=== PATIENT | female | born 1950 | race Caucasian/White ===

== ENCOUNTER 2023-10-17 10:55 | Observation (INO) | payer MEDICARE, SELFPAY ==
[2023-10-17] VITALS (43 sets, daily range): BP systolic 86–116; BP diastolic 47–75; PULSE 78–151; RESP 16–23; TEMP 36.4–37.2; O2SAT 92–100; BMI 25.9
--- NOTE | ~2023-10-17 | CT_ITS ---
EXAMINATION: CT brain wo con DATE: 10/19/2023 10:55 INDICATION: Severe headache TECHNIQUE: Computed tomography (CT) of the head was performed without intravenous contrast. The mA wa s adjusted according to patient size. Iterative reconstruction technique was employed. Exam dose: 60 5.33 mGy-cm total exam DLP. COMPARISON: None FINDINGS: No intracranial mass lesion or hemorrhage or cerebrovascular accident, midline shift or mas s effect is detected. There is bilateral carotid siphon internal carotid artery calcification. There is nonspecific diminis hed attenuation of the cerebral white matter, likely due to chronic small vessel ischemic changes. No subdural or epidural hematoma is detected. The mastoid air cells and included paranasal sinuses are normally developed and aerated other than mi ld patchy ethmoid air cell soft tissue thickening, primarily on the left. No fracture or bone destruction of the cranial vault. IMPRESSION: Cerebral atherosclerosis and chronic small vessel ischemic changes of the cerebral white matter No acute intracranial finding Reviewed, dictated and finalized at [facility]. Reviewed, dictated and finalized at location [facility]. SHING MACHINE OPERATOR HELPER
--- NOTE | ~2023-10-17 | CT_ITS ---
EXAMINATION: CTA chest PE protocol DATE: 10/17/2023 14:13 INDICATION: Shortness of breath. Palpitations. Arrhythmia. TECHNIQUE: Computed tomography angiography (CTA) of the chest was performed with 100 mL Omnipaque-350 intravenous contrast timed to evaluate the pulmonary arteries. Coronal maximum intensity projection 3D-reconstructions were created by the technologist. Automated exposure control and iterative reconst ruction technique were employed. Exam dose: 179.03 mGy-cm total exam DLP. COMPARISON: 10/17/2023 portable AP chest FINDINGS: There is diagnostic contrast enhancement of the pulmonary arteries and no evidence of pulmo nary embolism. Small pericardial effusion. There is cardiomegaly. No thoracic aortic aneurysm. Normal morphology of the adrenal glands. Status post cholecystectomy. Small sliding hiatal hernia. Scattered mild discoid densities are noted in all lobes of both lungs suggesting mild discoid atelect asis and/or scarring. Minimal scattered patchy bilateral groundglass pulmonary density which may repr esent small airways disease and/or minimal pneumonitis. Status post lower anterior cervical spine surgical fusion Mild likely chronic anterior wedge compression fracture deformity of T8 Minimal loss of height and anterior wedging of T9, also chronic. IMPRESSION: Small pericardial effusion Cardiomegaly No evidence of pulmonary embolism Mild patchy bilateral groundglass pulmonary densities scattered throughout the lungs which may repres ent small airways disease or mild pneumonitis Scattered bilateral discoid atelectasis and/or scarring throughout the lungs Reviewed, dictated and finalized at [facility]. Reviewed, dictated and finalized at [facility]. CHUTE/COMBATANT DIVER OFFICER IMPRESSION: Small pericardial effusion Cardiomegaly No evidence of pulmonary embolism Mild patchy bilateral groundglass pulmonary densities scattered throughout the lungs which may represent small airways disease or mild pneumonitis Scattered bilateral discoid atelectasis and/or scarring throughout the lungs
--- NOTE | ~2023-10-17 | XR_ITS ---
XR chest 1V portable DATE: 10/17/2023 11:51 INDICATION: Chest pain. Dizziness for 4 days. Atrial fibrillation. Weakness. TECHNIQUE: Portable upright AP chest on 10/17/2013 at 1148 hours COMPARISON: None FINDINGS: Cardiomegaly. Mild aortic unfolding. No hilar or mediastinal enlargement. There is mild discoid atelectasis or scarring in the right lower lung. No pulmonary infiltrate or con solidation, pleural effusion or pulmonary vascular congestion or pneumothorax is detected. Status post lower anterior cervical spine surgical fusion. Osteopenia. Status post cholecystectomy. Probable postoperative change of the left upper abdomen. IMPRESSION: Mild discoid atelectasis or scarring, right lower lung Reviewed, dictated and finalized at location [facility]. R SHEAR OPERATOR
--- NOTE | 2023-10-17 10:57 | ECG_ITS ---
Measurements Intervals [place] Rate: 145 P: [place]: 0 QRS: 16 QRSD: 84 T: -10 QT: 296 QTc: 461 Interpretive Statements ATRIAL FIBRILLATION WITH RAPID VENTRICULAR RESPONSE CONSIDER ANTERIOR INFARCT, AGE INDETERMINATE BORDERLINE ST-T WAVE ABNORMALITY- INFERIOR LEADS BASELINE ARTIFACT- I, II, III ABNORMAL ECG NO PREVIOUS ECG AVAILABLE FOR COMPARISON Electronically Signed On 10-17-2023 11:12:03 LEAD MOBILE DEVELOPER by Marino Johnson D.O.
--- NOTE | 2023-10-17 11:09 | ED.ARRPALP ---
HPI - Arrhythmia/Palpitations General Chief Complaint: Arrhythmia/Palpitations Stated Complaint: afib, Time Seen by Provider: 10/17/23 11:05 History of Present Illness HPI narrative: Patient is a 73-year-old female with history of atrial fibrillation who presents ER with weakness and palpitations. Patient felt like she went AFib last night. Prior to that she has been feeling short of breath and weak over last few days. No fevers or chills. Occasional cough. No known sick contacts. Patient did travel here recently from [place]. Patient diagnosed with AFib in the past but is not anticoagulated, she does take an aspirin. She is without chest pain or chest heaviness. Patient has had poor appetite and decreased oral intake. Patient has also had recent diagnosis hypothyroidism and started on levothyroxine. She has not been taking the medication last few days. Related Data Home Medications Medication Instructions Recorded Confirmed aspirin 81 mg tablet,delayed 81 mg PO DAILY 10/17/23 10/17/23 release baclofen 5 mg tablet 5 mg PO TID PRN Muscle Spasm 10/17/23 10/17/23 hydrochlorothiazide 25 mg tablet 25 mg PO DAILY 10/17/23 10/17/23 levothyroxine 50 mcg tablet 25 mcg PO DAILY 10/17/23 10/17/23 lorazepam 0.5 mg tablet 0.5 mg PO HS PRN Anxiety 10/17/23 10/17/23 metformin 500 mg tablet,extended 500 mg PO DAILY 10/17/23 10/17/23 release 24 hr omeprazole 20 mg capsule,delayed 20 mg PO DAILY 10/17/23 10/17/23 release tramadol 50 mg tablet 50 mg PO Q12H PRN Pain 10/17/23 10/17/23 Allergies Allergy/AdvReac Type Severity Reaction Status Date / Time tetanus toxoid, adsorbed Allergy Anaphylaxis Verified 10/17/23 11:05 Sulfa (Sulfonamide AdvReac Nausea and Verified 10/17/23 11:05 Antibiotics) Vomiting Review of Systems Review of Systems: All systems reviewed & are unremarkable except as noted in HPI and below Constitutional: Constitutional: Denies chills, Reports fatigue and Denies fever(s) ENT: Reports system reviewed and no additional complaints, except as documented Cardiovascular: Cardiovascular: Denies chest pain, Reports rapid heart rate and Denies radiating jaw, neck or arm pain Respiratory: Respiratory: Denies cough, Reports dyspnea and Denies wheezing Gastrointestinal: Gastrointestinal: Reports no additional gastrointestinal complaints Genitourinary: Genitourinary: Reports no additional female genitourinary complaints [facility] Past Medical History Medical History (Updated 10/17/23 @ 18:32 by Andrew Hernandez MD) Atrial fibrillation Diabetes Hypertension Hypothyroidism Surgical History Surgical History (Updated 10/17/23 @ 11:32 by Andrew Hernandez MD) History of cholecystectomy History of hysterectomy Hx of appendectomy Social History Social History Smoking status: Never smoker Second hand tobacco smoke exposure: Yes Alcohol intake: never Substance use: never Do You Feel Safe in your Home?: Yes Lack of Transportation: No Lack of Food: Never True Current Housing: I Have Housing Concerned About Future Housing: No Difficulty Paying Gas/Electric Bills: No Difficulty Paying for Meds: No Currently Unemployed: No Education: Don't Know Difficulty w/ Childcare or Family Care: No Spiritual care concerns: No Exam Narrative: GENERAL: Fatigued-appearing, well-nourished, and in no acute distress. HEAD: Normocephalic, atraumatic. ENT: Mucous membranes moist. NECK: Supple. CHEST: Clear to auscultation. No respiratory distress. HEART: irregularly irregular rate and rhythm that is tachycardic. Normal peripheral pulses. ABDOMEN: Soft, nontender, nondistended. EXTREMITIES: Normal range of motion. No edema. SKIN: Warm, dry, no rash. NEURO: Alert and oriented x3. PSYCH: Normal mood and affect. Course Course Emergency Course: Patient resting comfortably. Rate controlled with IV diltiazem. Mild drop in blood pressure but responsive to IV fluid. Adm
[2023-10-17] MEDS: ASPIRIN 81 MG CHEWABLE TABLET 324 MG PO (11:15)
[2023-10-17 11:17] LABS: Basophils Percent Auto 0.2 % (0.2-1.2); Eosinophils Absolute Auto 0.1 K/mm3 (0-0.3); Eosinophils Percent Auto 1.2 % (0-4.4); Hematocrit 40.3 % (37.0-47.0); Hemoglobin 13.2 g/dL (12.0-15.0); Immature Granulocyte Absolute 0.05 K/mm3 (0.00-0.031); Immature Granulocyte Percent A 0.4 % (0-0.5); Lymphocytes Absolute Auto 0.86 K/mm3 (0.9-3.2); Lymphocytes Percent Auto 7.3 % (18.3-44.2); Mean Corpuscular HGB Conc 32.8 g/dl (32-36); Mean Corpuscular Hemoglobin 29.5 pg (26-34); Mean Corpuscular Volume 90.2 fl (80-100); Mean Platelet Volume 9.7 fl (7.4-10.4); Monocytes Percent Auto 8.5 % (2.6-8.5); Neutrophils Absolute Auto 9.7 K/mm3 (1.3-6.7); Neutrophils Percent Auto 82.4 % (45.5-73.1); Platelet Count Result 257 k/mm3 (150-375); Red Blood Count 4.47 M/mm3 (4.2-5.4); Red Cell Distribution Width 12.3 % (11.5-14.5); White Blood Count 11.7 K/mm3 (4.5-10.0)
[2023-10-17] MEDS: Please add drug allergy info to patient profile. 1 EACH XX (11:17)
[2023-10-17 11:28] LABS: INR 1.1; Prothrombin Time 14.2 Seconds (11.1-14.7)
[2023-10-17 11:29] LABS: Partial Thromboplastin Time 28.7 SECONDS (22.3-36.8)
[2023-10-17 11:30] LABS: Alanine Aminotransferase 21 U/L (6-35); Albumin Level 3.7 g/dL (3.5-5.1); Alkaline Phosphatase 82 U/L (38-126); Anion Gap 16 mmol/L (8-16); Aspartate Amino Transferase 25 U/L (14-36); Bilirubin,Total 1.1 mg/dL (0.2-1.3); Blood Urea Nitrogen 18 mg/dL (7-17); Calcium 8.4 mg/dL (8.4-10.2); Carbon Dioxide 24 mmol/L (22-30); Chloride 90 mmol/L (98-107); Estimated CRCL calculation 46 ml/min; Estimated Glomerular Filt Rate > 60; Glucose 123 mg/dL (65-110); Lipase 180 U/L (23-300); Sodium 130 mmol/L (137-145)
[2023-10-17] MEDS: dilTIAZem HCl INJ 25 MG/5 ML VIAL 10 MG IV PUSH (11:38)
[2023-10-17] MEDS: POTASSIUM CHLORIDE 20 MEQ ER TABLET 40 MEQ PO (11:38)
[2023-10-17] MEDS: SODIUM CHLORIDE 0.9% IV 1,000 ML 999 ML IV CONT ×2 (11:45→13:40)
[2023-10-17 11:47] LABS: Troponin I 0.059 ng/mL (0.000-0.034)
[2023-10-17 12:30] LABS: NT Pro B Type Natriuretic Pept 9260 pg/mL (19.9-100)
[2023-10-17 12:34] LABS: Influenza A QL RT-PCR Negative (Negative); Influenza B QL RT-PCR Negative (Negative); RSV RNA, RT-PCR Negative (Negative); SARS-CoV-2 RNA PCR Negative (Negative)
--- NOTE | 2023-10-17 13:24 | PC.NURSE ---
EDP DR. Hernandez gave VORB for 1L of 0.9% NS bolus stat.
--- NOTE | 2023-10-17 13:57 | ECG_ITS ---
Measurements Intervals [place] Rate: 78 P: 40 [place]: 134 QRS: 42 QRSD: 83 T: 6 QT: 372 QTc: 425 Interpretive Statements SINUS RHYTHM CONSIDER ANTERIOR INFARCT, AGE INDETERMINATE BORDERLINE ST-T WAVE ABNORMALITY- INFERIOR LEADS ABNORMAL ECG COMPARED TO ECG 10/17/2023 11:05:22 SINUS RHYTHM NOW PRESENT Electronically Signed On 10-17-2023 14:06:36 FACS TEACHER by Marino Johnson D.O.
[2023-10-17 14:36] LABS: Troponin I 0.052 ng/mL (0.000-0.034)
[2023-10-17] MEDS: ENOXAPARIN 80 MG/0.8 ML SYRINGE 65 MG SUB-Q (14:51)
[2023-10-17 14:54] LABS: Free T4 Free Thyroxine Reflex 1.65 ng/dL (0.78-2.19)
[2023-10-17 15:33] LABS: Total Triiodothyronine (T3) 0.74 NG/ML (0.97-1.69)
--- NOTE | 2023-10-17 16:07 | PC.NURSE ---
EDP Dr. Hernandez reports no blood cultures needed
[2023-10-17] MEDS: POTASSIUM CHLORIDE INJ 40 MEQ in SODIUM CHLORIDE 0.9% IV 500 ML 130 MEQ IVPB (16:15)
--- NOTE | 2023-10-17 17:18 | ADMGEN ---
This patient, Sonam Don, was admitted to IMU Room 210-01. Patient/family oriented to hospital policies and general routines including ID bracelet, bed and alarms, visiting hours, pain management, procedures, bathroom and other care routines, personal items, smoking policy, room service/diet, and visiting hours. Information on how to activate the Rapid Response Team has been discussed. Patient/Family are encouraged to report perceived risks to care and to ask questions if they do not understand what they are told or what they should do.
[2023-10-17 18:41] LABS: Troponin I 0.049 ng/mL (0.000-0.034)
[2023-10-17] MEDS: AZITHROMYCIN 500 MG/NS 250 ML 500 MG/250 ML BAG 250 MG IVPB (18:57)
[2023-10-17] MEDS: HYDROcodone/acetaminophen (*CRX) 5-325 MG TABLET 1 TAB PO (20:35)
--- NOTE | 2023-10-17 23:14 | PM.IMHP ---
H&P: HPI History of Present Illness Date/Time: 10/17/23 23:14 Chief Complaint: Patient came to the ER for evaluation of palpitations and weakness Narrative: She is a very pleasant lady with atrial fibrillation, not anticoagulated, who came to the ER for evaluation because of weakness and palpitations. She felt like she went into AFib light night. She is feeling short of breath and weak over the last few days. She did travel here recently from [place]. She has recently been diagnosed with hypothyroidism and started on levothyroxine which she has not been taking for last few days. Workup was done which showed AFib with RVR. Patient given IV diltiazem with good rate control, but her SBP fell below 100. Workup also showed mild leukocytosis with pneumonia which was confirmed with CT of chest. She is given IV hydration and started on IV antibiotics. She has minimally elevated cardiac enzymes which are flat. She does not complain of any chest pain. She has been placed under observation for medical management, tele monitoring and cardiology evaluation in am. Review of Systems Review of Systems: 14 systems were reviewed with pertinent positives and negatives per HPI. Except as documented in the HPI/progress notes, all other systems were reviewed and are negative. All systems reviewed & are unremarkable except as noted in HPI and below PMFSH Past Medical History Medical History (Updated 10/18/23 @ 03:13 by Asad Coleman MD) Atrial fibrillation Diabetes Hypertension Hypothyroidism Hypothyroidism (acquired) Surgical History Surgical History (Updated 10/17/23 @ 11:32 by Andrew Hernandez MD) History of cholecystectomy History of hysterectomy Hx of appendectomy Social History Social History Smoking status: Never smoker Second hand tobacco smoke exposure: Yes Alcohol intake: never Substance use: never Do You Feel Safe in your Home?: Yes Lack of Transportation: No Lack of Food: Never True Current Housing: I Have Housing Concerned About Future Housing: No Difficulty Paying Gas/Electric Bills: No Difficulty Paying for Meds: No Currently Unemployed: No Education: Don't Know Difficulty w/ Childcare or Family Care: No Spiritual care concerns: No Meds Home Medications and Allergies Home Medications Medication Instructions Recorded Confirmed Type aspirin 81 mg tablet,delayed 81 mg PO DAILY 10/17/23 10/17/23 History release baclofen 5 mg tablet 5 mg PO TID PRN Muscle Spasm 10/17/23 10/17/23 History hydrochlorothiazide 25 mg tablet 25 mg PO DAILY 10/17/23 10/17/23 History levothyroxine 50 mcg tablet 25 mcg PO DAILY 10/17/23 10/17/23 History lorazepam 0.5 mg tablet 0.5 mg PO HS PRN Anxiety 10/17/23 10/17/23 History metformin 500 mg tablet,extended 500 mg PO DAILY 10/17/23 10/17/23 History release 24 hr omeprazole 20 mg capsule,delayed 20 mg PO DAILY 10/17/23 10/17/23 History release tramadol 50 mg tablet 50 mg PO Q12H PRN Pain 10/17/23 10/17/23 History Allergies Allergy/AdvReac Type Severity Reaction Status Date / Time tetanus toxoid, adsorbed Allergy Anaphylaxis Verified 10/17/23 11:05 Sulfa (Sulfonamide AdvReac Nausea and Verified 10/17/23 11:05 Antibiotics) Vomiting Vital Signs Vital Signs - 24 hr 10/17/23 10:59 10/17/23 11:01 10/17/23 11:02 Temperature 36.4 C Pulse Rate 147 H 109 H 128 H Respiratory Rate 20 22 H 22 H Blood Pressure 103/67 103/67 Pulse Oximetry 98 97 Oxygen Delivery Room Air 10/17/23 11:16 10/17/23 11:34 10/17/23 11:35 Temperature Pulse Rate 151 H 102 H 111 H Respiratory Rate 23 H 21 H 22 H Blood Pressure 102/66 Pulse Oximetry 98 97 96 Oxygen Delivery 10/17/23 11:45 10/17/23 11:51 10/17/23 12:00 Temperature Pulse Rate 92 89 88 Respiratory Rate 20 23 H 22 H Blood Pressure 113/74 97/64 L 103/64 Pulse Oximetry 95 97 97 Oxygen Delivery 10/17/23 12:01 10/17/23 12:10 10/17/23 12:15 Temperature
[2023-10-18] VITALS (17 sets, daily range): BP systolic 110–132; BP diastolic 62–86; PULSE 77–134; RESP 16–24; TEMP 36.7–37.4; O2SAT 94–99
--- NOTE | 2023-10-18 | ECHO_ITS ---
Patient Info Name: Sonam Don Age: 73 years : 1950 Gender: Female Ht: 64 in Wt: 145 lbs BSA: 1.73 m2 HR: 78 bpm BP: 110 / 62 mmHg Heart Rhythm: Sinus Rhythm Technical Quality: Good Exam Date: 10/18/2023 1:06 PM Exam Location: Echo Lab Patient Status: Inpatient Admit Date: 10/17/2023 Staff Ordering Physician: Radha Wadsworth MD Forensic Investigator: Lior Brown RDCS Attending Provider: Uziel Lake MD Exam Type: CA echo doppler color flow Study Info Indications - CHF Complete two-dimensional, color flow and Doppler transthoracic echocardiogram is performed. Summary 1. Complete two-dimensional, color flow and Doppler transthoracic echocardiogram is performed. 2. Left ventricular chamber dimension is normal. 3. Left ventricular systolic function is normal, estimated at 65-70%. 4. There is mildly increased left ventricular wall thickness. 5. The left ventricular diastolic function is grade I diastolic dysfunction. 6. Right ventricular chamber dimension is mildly enlarged. 7. Right ventricular systolic function is normal. 8. Left atrial chamber dimension is mildly enlarged. 9. Right atrial chamber dimension is mildly enlarged. 10. There is trace aortic valve regurgitation. 11. There is trace mitral valve regurgitation. 12. There is trace tricuspid valve regurgitation. 13. There is trace circumferential pericardial effusion. Left Ventricle Left ventricular chamber dimension is normal. Left ventricular systolic function is normal, estimated at 65-70%. There is mildly increased left ventricular wall thickness. The left ventricular diastolic function is grade I diastolic dysfunction. Right Ventricle Right ventricular chamber dimension is mildly enlarged. Right ventricular systolic function is normal. Left Atria Left atrial chamber dimension is mildly enlarged. Right Atria Right atrial chamber dimension is mildly enlarged. Atrial Septum Intact interatrial septum visualized by color flow imaging. Aortic Valve The aortic valve is trileaflet. There is no aortic valve stenosis. There is trace aortic valve regurgitation. There is mild aortic valve calcification. Pulmonic Valve The pulmonic valve is not well visualized. Mitral Valve There is trace mitral valve regurgitation. The mitral valve annulus is mildly calcified. Tricuspid Valve There is trace tricuspid valve regurgitation. Pericardium/Pleural There is trace circumferential pericardial effusion. Inferior Vena Cava Normal inferior vena cava with >50% collapse upon inspiration consistent with normal right atrial pressure, 3 mmHg. Aorta The aortic root size at the sinus of Valsalva is normal. Left Ventricular Outflow Tract Name Value Normal LVOT 2D LVOT Diameter 1.8 cm LVOT Doppler LVOT Peak Gradient 4 mmHg LVOT Mean Gradient 2 mmHg LVOT VTI 20 cm LVOT VTI/AV VTI Ratio 0.8 LVOT Stroke Volume 53 ml LVOT CO 4.1 l/min LVOT CI 2.4 l/min/m2 Pulmonic Valve
[2023-10-18] MEDS: traMADol HCL (*CRX) 50 MG TABLET PO ×2 (04:08→16:09)
[2023-10-18] MEDS: KCL 20MEQ/0.9% SOD CHL 1,000 ML 100 ML IV CONT (04:09)
[2023-10-18 05:55] LABS: Troponin I 0.027 ng/mL (0.000-0.034)
[2023-10-18] MEDS: LEVOTHYROXINE SODIUM 25 MCG TABLET PO (06:40)
[2023-10-18] MEDS: ACETAMINOPHEN 325 MG TABLET 650 MG PO (08:32)
[2023-10-18] MEDS: ENOXAPARIN 40 MG/0.4 ML SYRINGE SUB-Q (08:34)
[2023-10-18] MEDS: PANTOPRAZOLE 40 MG TABLET PO (08:35)
[2023-10-18] MEDS: ASPIRIN 81 MG ENTERIC TABLET PO (08:35)
[2023-10-18] MEDS: hydroCHLOROthiazide 25 MG TABLET PO (08:35)
[2023-10-18 09:28] LABS: Basophils Percent Auto 0.2 % (0.2-1.2); Eosinophils Absolute Auto 0.3 K/mm3 (0-0.3); Eosinophils Percent Auto 3.4 % (0-4.4); Hematocrit 33.1 % (37.0-47.0); Hemoglobin 10.8 g/dL (12.0-15.0); Immature Granulocyte Absolute 0.04 K/mm3 (0.00-0.031); Immature Granulocyte Percent A 0.5 % (0-0.5); Lymphocytes Absolute Auto 0.58 K/mm3 (0.9-3.2); Mean Corpuscular HGB Conc 32.6 g/dl (32-36); Mean Corpuscular Hemoglobin 29.6 pg (26-34); Mean Corpuscular Volume 90.7 fl (80-100); Mean Platelet Volume 10.8 fl (7.4-10.4); Monocytes Absolute Auto 0.7 K/mm3 (0.1-0.6); Monocytes Percent Auto 8.6 % (2.6-8.5); Neutrophils Absolute Auto 6.6 K/mm3 (1.3-6.7); Neutrophils Percent Auto 80.3 % (45.5-73.1); Platelet Count Result 210 k/mm3 (150-375); Red Blood Count 3.65 M/mm3 (4.2-5.4); Red Cell Distribution Width 12.6 % (11.5-14.5); White Blood Count 8.3 K/mm3 (4.5-10.0)
--- NOTE | 2023-10-18 09:28 | PM.IMPN ---
Progress Note: A&P Assessment and Plan (1) Hypotension: Code(s): I95.9 - Hypotension, unspecified Status: Acute (2) Hypokalemia: Code(s): E87.6 - Hypokalemia Status: Acute (3) Hypothyroidism (acquired): Code(s): E03.9 - Hypothyroidism, unspecified Status: Acute (4) Atrial fibrillation with rapid ventricular response: Code(s): I48.91 - Unspecified atrial fibrillation Status: Acute (5) Pneumonia: Code(s): J18.9 - Pneumonia, unspecified organism Status: Acute (6) Dyspnea on exertion: Code(s): R06.09 - Other forms of dyspnea Status: Acute Plan 73F w/ PMH p a fib not anticoagulated, HTN, hypothyroidism, NIDDM presents with complains of palpitations and weakness and SOB. Admitted on 10/18/22 with a fib w/ RVR # a fib with RVR - prior history of a fib but hasn't had it completely worked up. documented a fib in RVR and now controlled after 10mg iv cardizem bolus however her SBP dropped below 100. she was not placed on anything oral for terminologist. cardiology consulted. she did receive lovenox today. CHADvasc2 score is 4. - pending echocardiogram - troponin elevation now resolved, likely 2/2 to demand. no acute ischemia on EKG although will defer to cardiology next steps considering a fib and pending echo. # dyspnea on exertion - she complains of this progressing over recent past and now worse after receiving IVF. - d/c IVF. BNP on admission 9000+, crackles on lung exam. CHF vs a fib causing flash pulmonary edema. start lasix small dose at 20mg iv qday. daily weights and fluid restriction 1800cc/day # hypokalemia - resolved s/p replacement. # leukocytosis - resolved, was likely reactive # pna? - started treatment on CAP on admission. pt has cough and night sweats. no sputum production. will continue for full 5 day treatment. # HTN - now controlled - pending a fib medication mgmt. # hypothyroidism - continue home dosing # NIDDM - accuchecks # diarrhea - hx of c diff, pt complains of diarrhea. check PCR # vulvovaginitis - pt complains of recurrent yeast infection when taking abx. she declines exam and want to start Diflucan prophylactically. diflucan 150mg po x1. # pt reports history of 30% coronary artery occlusion and aneurysm, takes aspirin at home. will add statin. FEN: saline lock IV, cardiac diabetic diet GI prophylaxis: not indicated DVT prophylaxis: lovenox Lines: pIV Code Status: Full code Dispo: stabe More than 35 minutes spent on chart review, patient interaction and assessment and plan. Subjective Date/time seen: 10/18/23 09:28 Interval history: NAOE. 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 pt has dyspnea on exertion which has been progressive in the recent past but she feel it is worse after fluid administration. she reports diarrhea as well. no chest pain Review of Systems Review of Systems: All systems reviewed & are unremarkable except as noted in HPI and below (subjective) Exam Const: General: comfortable and no acute distress Eyes: Pupils: Equal, round and reactive pupils present Neck: Neck: supple Resp: Effort & Inspection: normal respiratory effort Auscultation: crackles Cardio: Rate: regular rate Rhythm: regular rhythm Heart sounds: no gallops, no murmurs and no rubs GI: GI Palp: Yes Soft to palpation and No Tenderness to palpation present (GI) Extrem: General: no edema Objective Data Vital Signs Vital Signs: Vital Signs - 24 hr 10/17/23 10:59 10/17/23 11:01 10/17/23 11:02 Temperature 97.6 F Pulse Rate 147 H 109 H 128 H Respiratory Rate 20 22 H 22 H Blood Pressure 103/67 103/67 Pulse Oximetry 98 97 Oxygen Delivery Room Air 10/17/23 11:16 10/17/23 11:34 10/17/23 11:35 Temperature Pulse Rate 151 H 102 H 111 H Respiratory Rate 23 H 21 H 22 H Blood Pressure 102/66 Pulse Oximetry 98 97 96 Oxygen Delivery 10/17/23 11:45 10/17/23 11:51 10/17/23 12:00 Tem
[2023-10-18 09:44] LABS: Anion Gap 9 mmol/L (8-16); Blood Urea Nitrogen 13 mg/dL (7-17); Calcium 7.5 mg/dL (8.4-10.2); Carbon Dioxide 22 mmol/L (22-30); Chloride 103 mmol/L (98-107); Estimated CRCL calculation 60 ml/min; Estimated Glomerular Filt Rate > 60; Glucose 111 mg/dL (65-110); Magnesium 2.3 mg/dL (1.6-2.3); Potassium 3.9 mmol/L (3.4-5.0); Sodium 134 mmol/L (137-145)
[2023-10-18] MEDS: FLUCONAZOLE 150 MG TABLET PO (10:22)
[2023-10-18] MEDS: FUROSEMIDE INJ 40 MG/4 ML VIAL IV PUSH (10:23)
[2023-10-18 11:59] LABS: Glucose Point of Care 117 mg/dl (65-105)
--- NOTE | 2023-10-18 13:33 | PM.CNCAR ---
Assessment and Plan Assessment and plan (1) Atrial fibrillation with rapid ventricular response: Code(s): I48.91 - Unspecified atrial fibrillation Status: Acute Assessment and Plan: History of paroxysmal atrial fibrillation on no medical therapy. She states that she has symptoms of AFib recurrence about 2 to 3 times a week on average. She is not currently anticoagulated. She does have a CHADS2 Vasc score of at least 4 (age, gender, DM, CAD), therefore anticoagulation is indicated. Will start her on apixaban 5 mg p.o. b.i.d.. Will await results of echocardiogram before deciding which agent to use for rhythm/rate control. (2) CAD (coronary artery disease): Code(s): I25.10 - Atherosclerotic heart disease of [place] coronary artery without angina pectoris Status: Acute Assessment and Plan: Has a history mild, nonobstructive coronary artery disease with a reported 36% lesion in the LAD that is being treated medically. (3) Dyspnea on exertion: Code(s): R06.09 - Other forms of dyspnea Status: Acute Assessment and Plan: She does have a history concerning for CHF. She describes progressive dyspnea, dyspnea on exertion, lower extremity edema. Echo is pending. Will stop the IV Lasix for now because she looks euvolemic on exam at this point. History of Present Illness History of Present Illness Consult date/time: 10/18/23 13:33 Requesting physician: Radha Wadsworth MD Consult reason: atrial fibrillation Reason For Visit: afib rvr,elevated troponin,pneumonia Narrative: Sonam Don is a pleasant 73-year-old female with a history of hypothyroidism, nonobstructive coronary artery disease, type 2 diabetes mellitus, and atrial fibrillation. This is a patient who came to the hospital because of 5 days of not feeling well and in onset of dizziness and a sensation of racing heartbeat. She has a history of paroxysmal atrial fibrillation but states that she has never been on medical treatment for this including anticoagulation. A couple of years ago she had and extensive cardiac workup at a hospital near her home in [facility] or she reports having left heart catheterization that showed mild, nonobstructive coronary artery disease in her LAD that is being treated medically. She also had an echocardiogram which she does not recall to have any abnormal findings. She did have atrial fibrillation with rapid ventricular response noted on EKG in the emergency department. She has since converted to sinus rhythm and is asymptomatic. Review of Systems Review of Systems: All systems reviewed & are unremarkable except as noted in HPI and below PMFSH Past Medical History Medical History Atrial fibrillation Diabetes Hypertension Hypothyroidism Hypothyroidism (acquired) Surgical History Surgical History History of cholecystectomy History of hysterectomy Hx of appendectomy Social History Social History Smoking status: Never smoker Second hand tobacco smoke exposure: Yes Alcohol intake: never Substance use: never Do You Feel Safe in your Home?: Yes Lack of Transportation: No Lack of Food: Never True Current Housing: I Have Housing Concerned About Future Housing: No Difficulty Paying Gas/Electric Bills: No Difficulty Paying for Meds: No Currently Unemployed: No Education: Don't Know Difficulty w/ Childcare or Family Care: No Spiritual care concerns: No Meds Home Medications and Allergies Home Medications Medication Instructions Recorded Confirmed Type aspirin 81 mg tablet,delayed 81 mg PO DAILY 10/17/23 10/17/23 History release baclofen 5 mg tablet 5 mg PO TID PRN Muscle Spasm 10/17/23 10/17/23 History hydrochlorothiazide 25 mg tablet 25 mg PO DAILY 10/17/23 10/17/23 History levothyroxine 50
[2023-10-18 16:32] LABS: Glucose Point of Care 103 mg/dl (65-105)
[2023-10-18] MEDS: MORPHINE SULFATE (*CRX) 2 MG/ML INJ IV PUSH ×2 (17:47→20:23)
[2023-10-18] MEDS: BACLOFEN 5 MG TABLET PO (17:48)
[2023-10-18] MEDS: AZITHROMYCIN 500 MG/NS 250 ML 500 MG/250 ML BAG 250 MG IVPB (17:52)
--- NOTE | 2023-10-18 20:22 | ECG_ITS ---
Measurements Intervals [place] Rate: 123 P: ID: 0 QRS: 18 QRSD: 93 T: -16 QT: 331 QTc: 474 Interpretive Statements ATRIAL FIBRILLATION WITH RAPID VENTRICULAR RESPONSE BORDERLINE R WAVE PROGRESSION, ANTERIOR LEADS CONSIDER INFERIOR INFARCT, AGE INDETERMINATE BASELINE ARTIFACT- I, II, AVR, AVL, AVF ABNORMAL ECG COMPARED TO ECG 10/17/2023 14:05:40 ATRIAL FIBRILLATION NOW PRESENT Electronically Signed On 10-19-2023 6:37:30 [employer]IVER by Marino Johnson D.O.
[2023-10-18] MEDS: APIXABAN 5 MG TABLET PO (20:23)
[2023-10-18] MEDS: LORazepam (*CRX) 0.5 MG TABLET PO (20:23)
[2023-10-18] MEDS: dilTIAZem HCl INJ 25 MG/5 ML VIAL 10 MG IV PUSH (21:17)
[2023-10-18 21:46] LABS: Glucose Point of Care 137 mg/dl (65-105)
[2023-10-18] MEDS: dilTIAZem 100 MG/100 ML 100 MG/100 ML BAG IV CONT (22:27)
[2023-10-19] VITALS (13 sets, daily range): BP systolic 106–115; BP diastolic 51–60; PULSE 65–101; RESP 15–24; TEMP 36.5–37.4; O2SAT 93–98
[2023-10-19] MEDS: MORPHINE SULFATE (*CRX) 2 MG/ML INJ IV PUSH ×2 (00:17→10:00)
[2023-10-19 04:30] LABS: Basophils Percent Auto 0.4 % (0.2-1.2); Eosinophils Absolute Auto 0.2 K/mm3 (0-0.3); Eosinophils Percent Auto 2.6 % (0-4.4); Hematocrit 37.6 % (37.0-47.0); Hemoglobin 12.5 g/dL (12.0-15.0); Immature Granulocyte Absolute 0.04 K/mm3 (0.00-0.031); Immature Granulocyte Percent A 0.5 % (0-0.5); Lymphocytes Absolute Auto 0.94 K/mm3 (0.9-3.2); Lymphocytes Percent Auto 11.1 % (18.3-44.2); Mean Corpuscular HGB Conc 33.2 g/dl (32-36); Mean Corpuscular Hemoglobin 29.6 pg (26-34); Mean Corpuscular Volume 88.9 fl (80-100); Mean Platelet Volume 9.8 fl (7.4-10.4); Monocytes Absolute Auto 0.5 K/mm3 (0.1-0.6); Monocytes Percent Auto 6.4 % (2.6-8.5); Neutrophils Absolute Auto 6.7 K/mm3 (1.3-6.7); Platelet Count Result 286 k/mm3 (150-375); Red Blood Count 4.23 M/mm3 (4.2-5.4); Red Cell Distribution Width 12.3 % (11.5-14.5); White Blood Count 8.5 K/mm3 (4.5-10.0)
[2023-10-19 04:44] LABS: Alanine Aminotransferase 18 U/L (6-35); Albumin Level 3.1 g/dL (3.5-5.1); Alkaline Phosphatase 80 U/L (38-126); Anion Gap 10 mmol/L (8-16); Aspartate Amino Transferase 35 U/L (14-36); Bilirubin,Total 0.8 mg/dL (0.2-1.3); Blood Urea Nitrogen 6 mg/dL (7-17); Calcium 8.1 mg/dL (8.4-10.2); Carbon Dioxide 29 mmol/L (22-30); Chloride 94 mmol/L (98-107); Estimated CRCL calculation 60 ml/min; Estimated Glomerular Filt Rate > 60; Glucose 122 mg/dL (65-110); Magnesium 2.1 mg/dL (1.6-2.3); Potassium 2.9 mmol/L (3.4-5.0); Sodium 133 mmol/L (137-145)
[2023-10-19 04:59] LABS: Procalcitonin 0.2 ng/mL
--- NOTE | 2023-10-19 05:00 | ECG_ITS ---
Measurements Intervals [place] Rate: 79 P: 49 CA: 137 QRS: 46 QRSD: 92 T: 30 QT: 382 QTc: 438 Interpretive Statements SINUS RHYTHM BORDERLINE R WAVE PROGRESSION, ANTERIOR LEADS NONSPECIFIC T-WAVE ABNORMALITY- ANT/INF LEADS BORDERLINE ECG COMPARED TO ECG 10/18/2023 20:36:50 SINUS RHYTHM NOW PRESENT T-WAVE ABNORMALITY NOW PRESENT Electronically Signed On 10-19-2023 9:53:20 [employer] DEVELOPER by Marino Johnson D.O.
[2023-10-19] MEDS: traMADol HCL (*CRX) 50 MG TABLET PO (05:27)
[2023-10-19] MEDS: LEVOTHYROXINE SODIUM 25 MCG TABLET PO (05:28)
[2023-10-19] MEDS: BACLOFEN 5 MG TABLET PO (05:28)
[2023-10-19 07:38] LABS: Glucose Point of Care 132 mg/dl (65-105)
--- NOTE | 2023-10-19 09:31 | PM.PNCARD ---
Progress Note: A&P Assessment and Plan (1) Atrial fibrillation with rapid ventricular response: Code(s): I48.91 - Unspecified atrial fibrillation Status: Acute Assessment and Plan: History of paroxysmal atrial fibrillation on no medical therapy. She states that she has symptoms of AFib recurrence about 2 to 3 times a week on average. She had a recurrence of atrial fibrillation with RVR last night and spontaneously converted to sinus rhythm on diltiazem. IV diltiazem and start p.o. diltiazem 30 mg q.6 hours today. Continue apixaban 5 mg p.o. b.i.d.. Echocardiogram showed normal LVEF, grade I diastolic dysfunction, trace circumferential pericardial effusion K+ low this morning at 2.9 and is being replaced Continue telemetry for now From a cardiac standpoint could discharge later this afternoon if cardiac rhythm and BP remain stable on p.o. Diltiazem. If so, she should be discharged on Diltiazem CD 120mg daily (2) CAD (coronary artery disease): Code(s): I25.10 - Atherosclerotic heart disease of [place] coronary artery without angina pectoris Status: Acute Assessment and Plan: Has a history mild, nonobstructive coronary artery disease with a reported 36% lesion in the LAD that is being treated medically. (3) Dyspnea on exertion: Code(s): R06.09 - Other forms of dyspnea Status: Acute Assessment and Plan: Echo showed normal LV systolic function, EF 60-65%. No significant valvular abnormalities. Furosemide has been stopped at this point as she looks euvolemic. Subjective Date/time seen: 10/19/23 09:31 Interval history: Cardiology follow up for atrial fibrillation She had recurrence of atrial fibrillation last night. She felt short of breath and had palpitations. She was placed on a diltiazem drip and has converted back to sinus rhythm at this point her complaint this morning is that she has a headache. Review of Systems Review of Systems: All systems reviewed & are unremarkable except as noted in HPI and below Exam Const: General: comfortable, no acute distress, alert and awake Orientation/consciousness: patient oriented x3 HENMT: Head: normal to inspection Eyes: General: appearance normal, both eyes and all related structures Pupils: Equal, round and reactive pupils present Neck: Neck: normal visual inspection, supple and no JVD Carotids: normal carotid upstroke Resp: Effort & Inspection: normal respiratory effort Auscultation: clear to auscultation bilaterally Cardio: Rate: regular rate Rhythm: regular rhythm Heart sounds: S1 normal heart sound present, S2 normal heart sound present and no murmurs GI: Auscultation: normal bowel sounds Skin: General skin exam: normal color Neuro: General: patient oriented x3 Cranial nerves: Yes Equal, round and reactive pupils present Extrem: General: normal to inspection Psych: Appearance: grossly normal Mental Status: mental status grossly normal Objective Data Vital Signs Vital Signs: Vital Signs - 24 hr 10/18/23 12:00 10/18/23 10:00 10/18/23 12:00 Temperature 36.7 C Pulse Rate 85 94 89 Respiratory Rate 16 Blood Pressure 126/86 Pulse Oximetry 98 Oxygen Delivery 10/18/23 12:00 10/18/23 16:00 10/18/23 16:00 Temperature 36.7 C Pulse Rate 89 81 81 Respiratory Rate 20 Blood Pressure 124/64 Pulse Oximetry 98 99 Oxygen Delivery Room Air 10/18/23 16:00 10/18/23 14:00 10/18/23 18:00 Temperature Pulse Rate 81 82 82 Respiratory Rate 20 Blood Pressure Pulse Oximetry 99 Oxygen Delivery Room Air 10/18/23 20:00 10/18/23 22:27 10/18/23 20:00 Temperature 36.9 C Pulse Rate 134 H 122 H 87 Respiratory Rate 24 H Blood Pressure 132/84 Pulse Oximetry 97 Oxygen Delivery 10/18/23 20:00 10/18/23 20:30 10/18/23 22:00 Temperature Pulse Rate 87 130 H 128 H Respiratory Rate 24 H Blood Pressure Pulse Oximetry 97 Oxygen Delivery Room Air
[2023-10-19] MEDS: APIXABAN 5 MG TABLET PO (09:54)
[2023-10-19] MEDS: ASPIRIN 81 MG ENTERIC TABLET PO (09:54)
[2023-10-19] MEDS: hydroCHLOROthiazide 25 MG TABLET PO (09:54)
[2023-10-19] MEDS: PANTOPRAZOLE 40 MG TABLET PO (09:54)
[2023-10-19] MEDS: ACETAMINOPHEN/ASPIRIN/CAFFEINE 250-250-65 MG TABLET 1 TABLET PO (11:22)
[2023-10-19] MEDS: dilTIAZem HCL 30 MG TABLET PO ×2 (12:18→16:58)
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
== END 2023-10-19 18:25 | disposition home or self-care (01) ==
LOC: ANHED 11:33 → ANHIMU 17:05
PROVIDERS: Family Medicine; Admitting Provider Hospitalist; Emergency Provider Emergency Medicine; Visit Provider General Practice
DX: I48.91 Unspecified atrial fibrillation (principal); I25.10 Atherosclerotic heart disease of native coronary artery without angina pectoris; I95.9 Hypotension, unspecified; E87.6 Hypokalemia; E03.9 Hypothyroidism, unspecified; J18.9 Pneumonia, unspecified organism; I67.2 Cerebral atherosclerosis; R00.2 Palpitations; E11.9 Type 2 diabetes mellitus without complications; R91.8 Other nonspecific abnormal finding of lung field; I10 Essential (primary) hypertension; I31.39 Other pericardial effusion (noninflammatory); R94.31 Abnormal electrocardiogram [ECG] [EKG]; M62.838 Other muscle spasm; F41.9 Anxiety disorder, unspecified; Z79.82 Long term (current) use of aspirin; Z79.899 Other long term (current) drug therapy; Z79.84 Long term (current) use of oral hypoglycemic drugs; Z79.891 Long term (current) use of opiate analgesic
CPT/HCPCS: 36415; 70450; 71045; 71275; 80048; 80053; 82948; 83690; 83735; 83880; 84145; 84439; 84443; 84480; 84484; 85025; 85610; 85730; 87637; 93005; 93306; 96361; 96365; 96366; 96372; 96375; 96376; 99285; A9270; G0378; J0456; J0696; J1650; J1940; J2270; J3480; J7030; J7040; Q9967